=== PATIENT | male | born 1970 ===

== ENCOUNTER 2021-09-19 15:13 | Outpatient (REF) | payer OTHER, SELFPAY ==
[2021-09-19 20:17] LABS: ALT 37 U/L (16-63); AST 20 U/L (15-37); Albumin 4.4 g/dL (3.4-5.0); Alkaline Phosphatase 69 U/L (46-116); Anion Gap 8.1 mmol/L (3-11); BUN 14 mg/dL (7-18); Bilirubin, Total 0.9 mg/dL (0.2-1.0); CO2 27.9 mmol/L (21.0-32.0); CREATININE 1.1 mg/dL (0.70-1.30); Calculated LDL 63 mg/dL (<100); Chloride 104 mmol/L (98-107); Cholesterol 144 mg/dL (<200); Glucose 90 mg/dL (74-106); HDL Cholesterol 69 mg/dL (40-60); Potassium 4.4 mmol/L (3.5-5.1); Sodium 140 mmol/L (136-145); Total Protein 7.1 g/dL (6.4-8.2); Triglyceride 64 mg/dL (<150)
== END 2021-09-19 15:14 | disposition home or self-care (01) ==
LOC: NCHCN 15:13
PROVIDERS: Visit Provider Nurse Practitioner Family
DX: E78.5 Hyperlipidemia, unspecified (principal); I72.8 Aneurysm of other specified arteries; G47.33 Obstructive sleep apnea (adult) (pediatric)
CPT/HCPCS: 80053; 80061